=== PATIENT | male | born 1965 | race Caucasian/White ===

== ENCOUNTER 2018-01-08 13:21 | Day surgery (SDC) | payer BC ==
[~2018-01-08] VITALS: Ht 190.5 cm; Wt 98.4 kg
[~2018-01-08 13:21] MED LIST: CEFAZOLIN SOD 1 GM in D5W 50 ML IV ONE
[2018-01-08] MEDS ORDERED: BUPIVACAINE LIPOSOME/PF 266 MG/20 ML VIAL INFIL ONE (15:00)
[2018-01-08] MEDS ORDERED: LR 1,000 ML IV SCH (16:08)
[2018-01-08] MEDS ORDERED: MORPHINE 4 MG/ML INJ. SYRINGE IVP PRN ×3 (16:15)
[2018-01-08] MEDS ORDERED: METOCLOPRAMIDE HCL 10 MG/2 ML VIAL IVP PRN (16:15)
[2018-01-08] MEDS ORDERED: D5/0.45 NS 1,000 ML IV SCH (16:31)
[2018-01-08] MEDS ORDERED: HYDROmorphone 2 MG/ML VIAL IVP PRN (16:45)
[2018-01-08 17:39] VITALS: BP_SYST 133
[2018-01-08] MEDS ORDERED: HYDROcodone/ACETAMIN 5-325 MG TAB (NORCO/ VICODIN) PO PRN ×2 (17:51→17:52)
== END 2018-01-08 18:25 | disposition home or self-care (01) ==
LOC: SDS 13:21
PROVIDERS: ATTEND Colon & Rectal Surgery
DX: K64.2 Third degree hemorrhoids (principal); Z90.49 Acquired absence of other specified parts of digestive tract; Z98.890 Other specified postprocedural states; Z80.42 Family history of malignant neoplasm of prostate; Z87.891 Personal history of nicotine dependence; Z68.27 Body mass index [BMI] 27.0-27.9, adult; Z79.899 Other long term (current) drug therapy; I10 Essential (primary) hypertension
CPT/HCPCS: 88304; C9290; J0690; J7060